=== PATIENT | male | born 1995 | race Hispanic/Latino ===

== ENCOUNTER 2020-07-31 08:23 | Day surgery (SDC) | payer BC ==
[2020-07-29 15:10] LABS: Absolute Lymphocytes (CBC) 2.6 K/uL (0.7-4.9); Basophils % 0.3 % (0-1.3); Hematocrit 41.3 % (39.6-49.0); Lymphocytes % 21.5 % (15.3-44.8); MPV 9.3 fL (7.6-11.3); RBC Red Blood Cell Count 4.56 M/uL (4.33-5.43)
[2020-07-29 15:29] LABS: ALT/SGPT 29 U/L (12-78); AST/SGOT 18 U/L (15-37); Alkaline Phosphatase 76 U/L (45-117); Amylase 39 U/L (25-115); BUN Blood Urea Nitrogen 11 mg/dL (7-18); Bicarbonate 27 mmol/L (21-32); Bilirubin Direct 0.3 mg/dL (0-0.2); Bilirubin Total 1.5 mg/dL (0.2-1.0); Glucose Level 100 mg/dL (74-106); Potassium 3.7 mmol/L (3.5-5.1); Protein, Total 7.5 g/dL (6.4-8.2); Sodium Level 146 mmol/L (136-145)
[2020-07-31] MEDS ORDERED: Ringers Lactate 1,000 ML IV ONE ×2 (08:56→12:06)
[2020-07-31] MEDS ORDERED: CEFOXITIN/SWI 1gm 1 GM/10 ML SYR ONE (09:01)
[2020-07-31] MEDS ORDERED: propofoL 200 MG/20 ML VIAL IV ONE ×2 (10:15→10:32)
[2020-07-31] MEDS ORDERED: LIDOCAINE 2% MPF 5 ML VIAL ONE ×2 (10:16→10:32)
[2020-07-31] MEDS ORDERED: ROCURONIUM 50 MG/5 ML VIAL IV ONE (10:16)
[2020-07-31] MEDS ORDERED: GLYCOPYRROLATE 0.2 MG/ML SYR ONE (10:16)
[2020-07-31] MEDS ORDERED: FENTANYL CITR 250 MCG/5 ML ONE (10:18)
[2020-07-31] MEDS ORDERED: ONDANSETRON 4 MG/2 ML VIAL ONE (10:18)
[2020-07-31] MEDS ORDERED: MIDAZOLAM HCL 2 MG/2 ML INJ ONE ×2 (10:18→12:22)
[2020-07-31] MEDS ORDERED: EPHEDRINE SULF 50 MG/ML VIAL ONE (11:15)
[2020-07-31] MEDS ORDERED: FENTANYL CITR 100 MCG/2 ML ONE (11:23)
[2020-07-31] MEDS: HYDROMORPHONE HCL 1 MG/ML INJ ONE ×2 (12:19→12:25)
[2020-07-31] MEDS ORDERED: MEPERIDINE HCL 25 MG/ML SYR ONE (12:30)
[2020-07-31 13:28] VITALS: BP 156/90; TEMP 97.8; O2SAT 65
[2020-07-31] MEDS ORDERED: HYDROCODONE/APAP 7.5/325 MG TAB ONE (13:31)
--- NOTE | 2020-07-31 19:13 | OP ---
Date of Procedure: 07/31/2020 Surgeon: Enrique Ellis MD Maintenance Mechanic Elevators: ADELITA Hutchinson. Preoperative Diagnosis: Chronic cholecystitis and cholelithiasis. Postoperative Diagnosis: Chronic cholecystitis and cholelithiasis. Procedure: Laparoscopic cholecystectomy. Estimated Blood Loss: Minimal. Specimen: Gallbladder. Findings: As above. Anesthesia: General. Complications: None. The patient tolerated the procedure in stable condition, taken to Recovery in good general condition. Procedure In Detail: The patient was brought to the OR and placed in supine position. General anest hesia was begun. The patient was prepped and draped in the usual sterile fashion. Marcaine 0.5% was infiltrated locally. A 15 blade was used to make a 1 cm supraumbilical midline incision. Subcutane ous tissue was divided. Fascia was identified and divided. A #1 Vicryl stay suture was placed. Per itoneal cavity was entered with sharp and blunt dissection. A 12 mm trocar was placed into the perit galvez cavity under direct vision. Pneumoperitoneum was established and then three [address], 1 in the epigastrium just to the right of midline and 2 in the right subcostal region. Laparoscop y revealed a very distended gallbladder with omental adhesions. The gallbladder was aspirated of trupti ost clear bile consistent with acute cholecystitis and chronic cholecystitis and then retracted super iorly. There were some omental adhesions on the body and infundibulum which were taken down with sha rp and blunt dissection. Bleeding was controlled with cautery. Then, the infundibulum was identifie d and retracted inferolaterally. Cystic duct and cystic artery were clearly identified with blunt di ssection. Clips were placed. Both structures were divided and cautery was used to remove the gallbl adder from the liver bed. There was some oozing noted on the liver bed, which was controlled at the end of the case with Avitene. Right upper quadrant was irrigated. Effluent was clear. No evidence of bleeding or bile leakage was appreciated. Gallbladder was retrieved through the umbilicus via an EndoCatch bag and then there was no further evidence of bleeding or bile leakage appreciated. All tr ocars were removed under direct vision. Stay sutures were tied to each other to reapproximate the fa scial defect. Subcutaneous wounds were irrigated. Bleeding was controlled with cautery. A 3-0 silver service waiter bhaskar was used to approximate subcutaneous tissue and salo used to close skin. Sterile dressing was applied. The patient was awakened and taken to Recovery in good general condition. Discharge Note: The patient will go to Day Surgery and home when stable. Disposition: Home. Condition: Stable. Discharge Instructions: Resume home medications and diet. Activity as tolerated. No heavy lifting. Remove outer dressing in 2 days. Shower. Keep wound clean and dry. Follow up in my office 1 week . Call for appointment. Tylenol No. 3 one tablet p.o. q.4 p.r.n. pain, Cipro 500 mg p.o. q.12. /MODL Voice ID: [id number] Report ID: [id number]
== END 2020-07-31 13:48 | disposition home health service (06) ==
LOC: OR 08:23
PROVIDERS: ATTEND Surgery
PROC: 0FT44ZZ Resection of Gallbladder, Percutaneous Endoscopic Approach (ICD-10-PCS; principal; 2020-07-31 09:45)
DX: K80.10 Calculus of gallbladder with chronic cholecystitis without obstruction (principal); E66.9 Obesity, unspecified; F41.8 Other specified anxiety disorders; Z21 Asymptomatic human immunodeficiency virus [HIV] infection status; Z20.822 Contact with and (suspected) exposure to COVID-19
CPT/HCPCS: 85025; 80048; 36415; 82150; 80076; 88304; 47562; J2704 ×2; J2250 ×2; J3010 ×2; J2175; J1170; J7120 ×2; J2405